=== PATIENT | female | born 1980 | race Caucasian/White ===

== ENCOUNTER → 2017-11-06 13:01 | Outpatient (CLI) | payer BC, SELFPAY ==
[2017-11-13 10:36] LABS: HPV Reflexed? NOT INDICATED
== END ==
PROVIDERS: Visit Provider Obstetrics & Gynecology
DX: Z12.4 Encounter for screening for malignant neoplasm of cervix (principal)
CPT/HCPCS: 88175; G0145

== ENCOUNTER 2021-08-05 10:00 | Outpatient (CLI) | payer OTHER, SELFPAY ==
--- NOTE | 2021-08-05 10:04 | BI_ITS ---
MAMMOGRAPHY - BILATERAL SCREENING 3-D TOMOSYNTHESIS REASON FOR EXAM: Female, 40 years old. SCREENING PERTINENT HISTORY: No significant family history. TECHNIQUE: 2-D mammograms and 3-D Tomosynthesis of the breast (s) were performed. CAD was performed. COMPARISON: None. FINDINGS: The breast composition is heterogeneously dense that can obscure small breast masses. Scattered benign calcifications are seen. No dense spiculated masses or suspicious microcalcifications are identified. No architectural distortion is identified. There is no skin thickening or retraction. There has been no significant change since the prior study. BI/SCRN MAMM (CAD)W/KATH BILAT IMPRESSION: No mammographic signs of malignancy. Routine yearly mammograms recommended. ASSESSMENT CATEGORY: BIRADS Category 1: Negative. A letter regarding these results will be sent to the patient by the facility within 30 days. FOLLOW UP RECOMMENDATION: Yearly follow up mammogram recommended. (A) Approximately 10% of breast cancers are not detected by mammography. A normal mammogram should not delay biopsy of a clinically suspicious abnormality. Electronically Signed: Geoff Klein MD at 15:11 EDT ,
== END 2021-08-05 23:59 | disposition home or self-care (01) ==
LOC: OPBI 10:01
PROVIDERS: Visit Provider Obstetrics & Gynecology
DX: Z12.31 Encounter for screening mammogram for malignant neoplasm of breast (principal)
CPT/HCPCS: 77063; 77067

== ENCOUNTER 2022-04-23 09:28 | Emergency (ER) | payer OTHER, SELFPAY ==
[2022-04-23 09:29] VITALS: BP 147/100; PULSE 120; RESP 18; TEMP 36.2; O2SAT 96; BMI 36.8
--- NOTE | 2022-04-23 10:11 | ED.VIS.GI ---
HPI HPI - GI History of Present Illness Chief Complaint: Other, Pain/Inj Detail of Chief Complaint: Hemorrhoidal pain Informant: patient Abdominal Pain/Flank Pain Onset: Days Context: Gradual Onset Timing: Continuous Quality: Burning Current Severity: Mild Maximum Severity: Mild Worsened by: Nothing Relieved by: Nothing Nausea/Vomiting/Emesis GI Symptom: Negative for Nausea or Vomiting Diarrhea/Melena/Hematochezia GI Symptom: Positive for Diarrhea; Negative for Melena or Hematochezia Associated Symptoms Associated Symptoms: Negative for Dysuria or Frequency Narrative Narrative: 41-year-old female has had hemorrhoids for last 3 days. Small amount of bleeding. Increasing pain. Previously had them when she was . Prior similar symptoms: Yes Recent Illness/Hospitalization: No PFSH PFSH Medical History no medical history no medical history Home Medications hydrocodone-acetaminophen 5-325mg 5mg-325mg 1 - 2 tab PO Q4H PRN PRN Mod-Severe (Pain Scale 6-10) ##20 01/15/15 [Rx Last Taken Unknown] ondansetron 4 mg disintegrating tablet 4 mg PO Q8H PRN PRN Nausea #10 tabs 05/06/17 [Rx Last Taken Unknown] hydrocodone-acetaminophen 5-325mg 5mg-325mg 1 tab PO Q4H PRN pain 5 days #20 tabs 04/23/22 [Rx Last Taken Unknown] Allergy/AdvReac Type Severity Reaction Status Date / Time chlorhexidine Allergy Rash Verified 05/06/17 14:09 ciprofloxacin [From Cipro] Allergy Hives Verified 05/06/17 14:09 latex Allergy Rash Verified 05/06/17 14:09 Social History Smoking Status: Former smoker ROS ROS ED ROS Narrative Denies. Review of Systems ROS Unobtainable: Denies due to encephalopathy Constitutional Constitutional ED: Denies chills or fever(s) ENT ENT ED: Denies ear pain Cardiovascular Cardiovascular: Denies chest pain Respiratory/Chest Respiratory/Chest: Denies cough Gastrointestinal Gastrointestinal: Reports diarrhea; Denies abdominal pain, constipation, melena, nausea or vomiting Genitourinary Genitourinary ED: Denies dysuria or hematuria Musculoskeletal Musculoskeletal: Denies arthralgias Integumentary Denies abscess Neurologic Neurologic: Denies headache(s) or paresthesias Psychiatric Psychiatric: Denies anxiety Endocrine Endocrinology: Denies polydipsia Hematologic/Lymphatic Hematologic/Lymphatic: Denies easy bleeding Allergic/Immunologic Allergic/Immunologic ED: Denies mouth swelling, tongue swelling or urticaria EXAM Physical Exam Narrative Exam Narrative: Well-appearing 41-year-old female. Vital signs stable afebrile. H EENT exam unremarkable. Moist incontinence. Lungs clear to auscultation bilaterally. Heart tachycardic rate about 110 due to pain. Abdomen soft nontender normal bowel sounds no peritoneal signs. Moving all 4 extremities. Nontender no edema. Anal exam she has a cluster of 3 moderate sized hemorrhoids. Tender to palpation. Currently no active bleeding or clots. Const Vital Signs: 04/23/22 09:29 Temperature 97.2 F L Temperature Source Temporal Pulse Rate 120 H Respiratory Rate 18 Blood Pressure 147/100 H Blood Pressure Mean 115 Pulse Ox 96 Oxygen Delivery Method Room Air Positive well nourished, well developed and obese; Negative for cachectic, contractures or unkempt General Appearance ED: well developed and NAD; Negative for unkempt, cachectic, contractures or pallor Nutritional Appearance: obese; Negative for cachectic HEENT Reports moist mucous membranes normocephalic and atraumatic; Negative for trauma or tenderness Eyes PERRL and EOMs intact bilaterally General Eye ED: Negative for pale conjunctiva or scleral icterus Neck no lymphadenopathy, supple and no JVD General: Negative for tenderness Carotids: Negative for other Lymph Lymphatic: Negative for other Resp normal respiratory effort and clear to auscultation bilaterally Effort and Inspection: Negative for respiratory distress Auscultation: Negative for rales, rhonchi or wheezes Cardio regular rhythm, S1 normal heart sound, S2 normal heart sound and no murmurs; Negative for regular rate Rate: tachycardic GI non-tender, non-distended and no masses GI Narrative: Anal exam shows 3 moderate-sized hemorrhoids tender to palpation. No active bleeding or clots. Thrombosed. Inspection: Negative for abdominal distention Auscultation: normoactive bowel sounds Palpation: soft; Negative for tender or guarding Back/Spine no CVA tenderness General Back: Negative for CVA tenderness Cervical Spine: Negative for cervical spine tenderness Thoracic Spine / Upper Back: Negative for thoracic spinal tenderness Lumbar Spine / Lower Back: Negative for lumbar spinal tenderness Extremity full ROM General Extremety ED: Negative for edema or tenderness General Extremity: Negative for edema Neuro moves all extremities Sensorium / Orientation: alert, oriented to person, oriented to place and oriented to time; Negative for orientation impaired, confused, lethargic or stuporous Motor Exam: strength 5/5 throughout Psych mental status grossly normal and thought process normal Appearance: Negative for unkempt Attitude: No agitated Mood & Affect: Negative for depressed, anxious or tearful Skin no wounds General Skin Exam: Negative for jaundice or pallor Lesions: no lesions Rashes: no rashes Trauma: Negative for abrasion Nails: Negative for discolored MDM MDM MDM Narrative Medical decision making narrative: 41-year-old with hemorrhoids. She will use hemorrhoidal cream. Warm soaks. Be referred to general surgery for further evaluation and possible hemorrhoidectomy. [place] for pain. Discharge Plan Triage Chief Complaint: Other, Pain/Inj ED Provider: [place] Sue Dx/Rx/DC Orders Clinical Impression: External hemorrhoid Instructions: ED Hemorrhoids Prescriptions: New hydrocodone-acetaminophen 5-325 mg tablet 1 tab PO Q4H PRN (Reason: pain) 5 Days Qty: 20 0RF No Action hydrocodone-acetaminophen 1 TABLET tablet 1 - 2 tab PO Q4H PRN PRN (Reason: Mod-Severe (Pain Scale 6-10)) Qty: 20 0RF ondansetron 4 MG tablet 4 mg PO Q8H PRN PRN (Reason: Nausea) Qty: 10 0RF Primary Care Provider: Care Physician,No Primary Referrals: Augusta Mckay MD [Med Staff - Active Staff] - As soon as possible Care Physician,No Primary [Primary Care Provider] - Activity Restrictions/Additional Instructions: Call and follow-up with a general surgeon today. Call to get an appointment. Warm soaks in the tub. Motrin for pain along with the [place]. Hemorrhoidal cream 3-4 times a day. Preparation H is fine. Disposition Disposition: Home, Self Care
[2022-04-23] MEDS: HYDROcodone Bitartrate/Apap 5/325 Tablet PO (10:21)
== END 2022-04-23 10:35 | disposition home or self-care (01) ==
LOC: ED 10:21
PROVIDERS: Emergency Provider Emergency Medicine; Visit Provider Emergency Medicine
DX: O22.40 Hemorrhoids in pregnancy, unspecified trimester (principal); Z87.891 Personal history of nicotine dependence; R10.9 Unspecified abdominal pain; R19.7 Diarrhea, unspecified; O99.210 Obesity complicating pregnancy, unspecified trimester
CPT/HCPCS: 99282

== ENCOUNTER 2022-04-25 08:14 | Day surgery (SDC) | payer OTHER, SELFPAY ==
[2022-04-25] VITALS (9 sets, daily range): BP systolic 138–164; BP diastolic 82–121; PULSE 88–123; RESP 16–18; TEMP 35.6–36.9; O2SAT 92–98; BMI 36.8
[2022-04-25] MEDS: Lactated Ringers 1,000 ML 15 ML IV ×2 (08:58→11:50)
--- NOTE | 2022-04-25 10:11 | HP.PCM_ITS ---
History and Physical Date of Admission: 04/25/22 Intake Vital Signs ? 04/23/2308:29 04/24/2309:21 Height 5 ft 4 in 5 ft 4 in Weight: 215 lb 215 lb BMI 36.8 36.8 BP 147/100 H 142/107 H Blood Pressure Location ? Rt brachial Position ? Standing RespirationB 18 18 Pulse 120 H 135 H Pulse Source ? Monitor Temp 97.2 F L ? Temp Source Temporal ? Pulse Oximetry (%) 96 97 Oxygen Delivery Method ? 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 Is patient in pain?: Yes Pain scale (1-10): 10 Allergies chlorhexidine Allergy (Verified 04/24/22 11:13) Rashciprofloxacin [From Cipro] Allergy (Verified 04/24/22 11:13) Hiveslatex Allergy (Verified 04/24/22 11:13) Rash Medications hydrocodone-acetaminophen 5-325mg 5mg-325mg 1 tab PO Q4H PRN pain 5 days #20 tabs 04/23/22 [Rx Confirmed 04/24/22] albuterol sulfate 90 mcg/actuation aerosol inhaler 2 puff inhalation Q6H PRN ASTHMA 04/24/22 [History Confirmed 04/24/22] amoxicillin 500 mg-potassium clavulanate 125 mg tablet (Augmentin) 1 tab PO BID #3 tabs 04/24/22 [Rx Confirmed 04/24/22] oxycodone-acetaminophen 5 mg-325 mg tablet (Percocet) 1 - 2 tab PO Q4H PRN pain 7 days #60 tabs 04/24/22 [Rx Confirmed 04/24/22] PFSH Medical History?(Updated 04/24/22 @ 13:25 by Tasha HAMM PA-C) Alcohol use Asthma External hemorrhoid History of irregular heartbeat Injury of head and neck Migraine headache Non-smoker Restless legs Surgical History?(Updated 04/24/22 @ 10:19 by Rosina Kent) History of appendectomy History of History of loop electrical excision procedure (LEEP) History of tubal ligation Family History?(Updated 04/24/22 @ 10:20 by Rosina Kent) Grandfather Colon cancerFather Cancer ?? ? Pancreas and Liver Cancer DiabetesMother Cancer ?? ? Leukemia Diabetes Social History?(Updated 04/24/22 @ 10:21 by Rosina Kent) Smoking Status:? Former smoker alcohol intake:? current alcohol intake frequency: a few times a month substance use type:? does not use HPI HPI Surgical H&P: Yes HPI: Patient is a 41 y/o F I am seeing for rectal pain, possible thrombosed hemorrhoid. Patient states she has had this pain for 3 days. She notes the discomfort has been progressive over the last 3 days. Patient states she has never had pain like this previously. She is unable to sit or sleep. She has had a lack of appetite due to the pain. She went to the ED yesterday due to the pain. Patient was provided narcotic pain medication and recommended to place hemorrhoid cream on top of the hemorrhoids. Patient states she attempted to perform a sitz bath with Epsom salts which caused burning. She is frustrated with the pain and is willing to do whatever it takes to feel better. Patient does not like to take narcotic pain medication and only took 2 tablets. Patient notes she has been scared to have a bowel movement. ROS General General: No weight change, appetite, fatigue, colon cancer, breast cancer or weakness HEENT HEENT: No difficulty swallowing, eye injury, eye surgery, swollen glands or hoarseness Endo Endocrine: No thyroid disease, diabetes mellitus, thyroid cancer, Hair loss, heat intolerance or cold intolerance Skin Skin: No rash or changing moles Breast Breast: No left breast lump, right breast lump, nipple discharge, breast pain, abnormal mammogram, abnormal US or breast enlargement Musc Musculoskeletal: No back problems, arthritis, rheumatoid arthritis, gout or joint pain Cardio Cardiovascular: No murmur, pacemaker, heart disease, atrial fibrillation, high blood pressure, heart attack, heart stent, palpitations, shortness of breat with exertion or chest pain Psych Psychiatric: No depression, anxiety or hearing voices Resp Respiratory: No shortness of breath, No sleep apnea, No cough, No COPD, Yes asthma, No emphysema and No wheezing Gastro Gastrointestinal: No abdominal pain, No nausea or vomiting, No diarrhea, No constipation, No blood in stool, No acid reflux, Yes hemorrhoids, No ulcers, No gallbladder problem and No black,tarry stools Gray Hematologic: No blood thinners, No blood disorders, No bleeding, No anemia and No blood clots Neuro Neurologic: No system reviewed and no additional complaints, except as documented, No as per HPI, No abnormal gait, No abnormal hearing, No abnormal movements, No abnormal speech, No behavioral changes, No burning sensations, No confusion, No convulsions, No disequilibrium, No dizziness, No localized weakness, No frequent falls, No headache(s), No lack of coordination, No loss of vision, No memory loss, No numbness, No other visual disturbances, No radicular pain, No restless legs, No sensory deficit, No syncope, No tingling, No tremor(s), No weakness and No other Exam Const General: cooperative and in distress HENMT Head: normal to inspection Eyes General: appearance normal, both eyes and all related structures Neck Neck: normal visual inspection Neck mass: No Resp Effort & Inspection: normal respiratory effort Auscultation: clear to auscultation bilaterally Cardio Rate: tachycardic Rhythm: regular rhythm GI Inspection: normal to inspection Palpation: soft Other: Rectum- significant cluster of thrombosed hemorrhoids with evidence of multiple areas of necrotic tissue on the right lateral side of the anus. Extremely tender and painful to even spread to evaluate the area. Musc Cervical Spine: normal cervical lordosis Skin Rashes: no rashes Neuro General: no focal motor deficits Extrem General: normal to inspection Psych Appearance: disheveled Mood: anxious mood Affect: anxious affect and tearful Attitude: cooperative Assessment and Plan Assessment and Plan (1) Thrombosed external hemorrhoid: ?Status:?Acute ?Plan: I have involved and discussed this patient with Dr. Maravilla. Dr. Maravilla has also evaluated this patient. Dr. Maravilla will plan to perform an exam under anesthesia with an extensive hemorrhoidectomy. Procedure details, risks and benefits have been explained to the patient and the patient's sister. Patient will be prescribed Percocet and Augmentin per Dr. Maravilla. Post- operative instructions were discussed and provided to the patient. Patient and her sister have had the opportunity to ask and have questions answered. Patient has been urgently scheduled for tomorrow. Patient verbally understands and agrees with the plan. We will proceed as planned.
[2022-04-25] MEDS: Cefotetan 2 GM in 0.9% NS 100 ML IV (10:26)
--- NOTE | 2022-04-25 10:30 | HEM_PTH ---
PATIENT: SYDNEY MOSLEY LOC: [facility] U#:[id number] AGE/SX: 41/F ROOM: RE04/25/[address]: Dr. Olman Maravilla MD : 1980 BED: DIS: 04/25/2022 SPEC #: [id number] RECD: 04/25/22 13:52 STATUS: CAMPOS RERoro #: [id number] PRAMOD: 04/25/22 10:[address]: Olman Maravilla DEPT: SURGICAL PATHOLOGY RECD BY: Venus Watson ENTERED: 04/28/22 10:35 SP TYPE: HEMORRHOID OTHR DR: No Primary Care Phys Tissues: HEMORRHOIDS Procedures: Surgery Specimen Level III HEADER OPERATION: Exam under anesthesia, hemorrhoidectomy PRE-OP DIAGNOSIS: Thrombosed hemorrhoids with necrosis TISSUE SUBMITTED: Hemorrhoids MICROSCOPIC DIAGNOSIS Hemorrhoids, hemorrhoidectomy: Submucosal vascular ectasia and thrombosis consistent with hemorrhoids. Focal mucosal ulceration and associated acute and chronic inflammation and granulation. AM:lilia 04/29/2022 MICROSCOPIC DESCRIPTION Slides are reviewed. GROSS DESCRIPTION Received in fixative is one container labeled with the patient's name and designated hemorrhoids. The specimen consists of two pieces of congested mucosal tissue measuring in aggregate 3.5 x 2.5 x 1.5 cm. Sections reveal congested and hemorrhagic cut surfaces. Dermatology Teacher sections are submitted in two cassettes with each cassette containing sections from one fragment. / SJ:lilia 04/28/2022 TC:2 CPT: 19855
[2022-04-25] MEDS: Dibucaine 30 GM Tube 1 APPLIC (10:42)
[2022-04-25] MEDS: Lubricating Jelly 60 GM Tube 30 GM (10:43)
[2022-04-25] MEDS: BUPIVACAINE LIPOSOME/PF 20 ML VIAL OPERA.SITE (10:55)
--- NOTE | 2022-04-25 11:40 | SUR.PHASEI ---
REPEATEDLY C/O URGE TO VOID, OCCASIONALLY STATES URGE TO DEFECATE. SAT ON BEDPAN FOR OVER 10 MINUTES, SCANT URINE OUT, ASKING TO GET OOB TO BATHROOM, NEEDS REDIRECTED, REEDUCATED. MEDICATED w/ ATIVAN PER DR MURRELL TO HELP RELAX SINCE HAVING DIFFICULTY GETTING ACCURATE BP, RESTLESS, AGITATED.
--- NOTE | 2022-04-25 12:46 | PCM.OPRPT ---
Report of Operation Date of Procedure: 04/25/22 Pre-Operative Diagnosis: Necrotic thrombosed hemorrhoids Post-Operative Diagnosis: Same Surgery/Procedure Performed:: Exam under anesthesia with internal and external hemorrhoidectomy x2 columns Specimen's removed: Hemorrhoid x2 Description of Procedure: Patient brought back to the operating room and general anesthesia was induced. The patient was placed in a prone jackknife position. The buttocks were taped open and the perineum was prepped and draped in usual sterile fashion. The patient had large hemorrhoids which were thrombosed on the right side, both the anterior and posterior column with gangrenous overlying skin and necrosis. Using harmonic scalpel the hemorrhoids were removed from the underlying tissue. The sphincter was palpated and was intact. The mucosa was reapproximated over the area using interrupted 3-0 Vicryl sutures and a running 3-0 chromic suture. The area was irrigated and suctioned and there appeared to be good hemostasis. Next Exparel was injected in a circumferential fashion around the area. A Gelfoam was then rolled and coated with lidocaine gel and placed into the rectal area and left. Next dressing was applied the patient was turned over and extubated and brought to PACU in stable condition. Admit VTE Documentation VTE Mechan Device Prophylaxis: SCD's
--- NOTE | 2022-04-25 12:53 | DCINST_ITS ---
Discharge Instructions Procedure Rectal Surgery Diet Discharge Diet: Light diet - advance as tolerated (Pain medication may cause nausea. You should typically eat light foods as you take your pain medication.) Activity Discharge Activity: Return to Normal Activity and May Not Drive (while you are taking narcotic pain medications. Do not drive, work with heavy equipment or sign legal documents for 24 hours after your surgery.) May resume sexual activity in: No Restrictions Additional Activity Instructions:: Be aware that pain medications may cause nausea. You should typically eat light foods as you take your pain medications. Pain medications may also cause constipation, if you have difficulty with this please discuss with your doctor. Dressing / Incision Call your doctor if your incision/area has: Continuous Slow Oozing, Sudden Increased Bleeding, Increased Pain/ Swelling, Increased Redness, Foul Smelling Discharge and Swelling at the incision site Call your doctor if you observe: Fever of 101 or Higher, Inability to urinate and Uncontrolled pain Change Dressing in: as needed Additional Dressing/Incision Instructions:: If a local anesthetic plug was placed in the anal area, try not to expel for [address] dibucaine ointment on the perianal area as needed. Sitz baths twice daily and after bowel movements. Follow Up Care Please Follow Up With: Olman Maravilla MD When: Please call to schedule 2 week follow up appointment. [phone] Test Results: Test results from this visit will be discussed in further detail at your follow- up appointment, if applicable. Discharge Plan Admission Attending Provider: Olman Maravilla Primary Care Provider: Care PhysicianSarah Primary Discharge Orders/Prescriptions Prescriptions: New docusate sodium 100 mg tablet 100 mg PO BID Qty: 20 0RF Continued oxycodone-acetaminophen [Percocet] 5-325 mg tablet 1 - 2 tab PO Q4H PRN (Reason: pain) 7 Days Qty: 60 0RF amoxicillin-pot clavulanate [Augmentin] 500-125 mg tablet 1 tab PO BID Qty: 3 0RF albuterol sulfate 90 mcg/actuation Hfa Aerosol Inhaler 2 puff INHALATION Q6H PRN (Reason: ASTHMA) Discontinued hydrocodone-acetaminophen 5-325 mg tablet 1 tab PO Q4H PRN (Reason: pain) 5 Days Qty: 20 0RF Referrals / Follow Up: Care Physician,No Primary [Primary Care Provider] - Disposition Disposition (needs filled in before D/C Order can be placed): Home, Self Care
[2022-04-25] MEDS: Acetaminophen 325 MG Tablet PO (13:47)
[2022-04-25] MEDS: oxyCODONE 5 MG Tablet PO (13:47)
== END 2022-04-25 14:38 | disposition home or self-care (01) ==
LOC: SDC 08:15 → AC 08:20
PROVIDERS: Referring Provider Surgery; Visit Provider Surgery
PROC: (CPT 46260; principal; 2022-04-25 10:15)
DX: K64.5 Perianal venous thrombosis (principal); J45.909 Unspecified asthma, uncomplicated; Z79.899 Other long term (current) drug therapy; Z87.891 Personal history of nicotine dependence; Z80.0 Family history of malignant neoplasm of digestive organs
CPT/HCPCS: 46260; 00902; 88304; J7120; J2405

== ENCOUNTER → 2022-07-21 | Outpatient (CLI) | payer OTHER, SELFPAY ==
[2022-07-21 18:08] LABS: Hematocrit 43.3 % (37-47); Mean Corp Hgb Conc 32.3 g/dL (32-36); Mean Corpuscular Hgb 27.8 pg (27.0-32.0); Mean Corpuscular Volume 85.9 fL (81-99); Mean Platelet Vol. 11.1 fl (6.2-12.0); Platelet Count 301 K/mm3 (150-450); RBC Distribution Width CV 12.9 % (11.6-14.6); RBC Distribution Width SD 40.3 fl (35.1-43.9); Red Blood Count 5.04 M/mm3 (4.2-5.4); White Blood Count 9.9 K/mm3 (4.4-11.0)
[2022-07-21 18:28] LABS: Anion Gap 2 (5-15); BUN 14 mg/dL (7-18); BUN/Creat Ratio 23.5 RATIO (10-20); Chloride 107 mmol/L (98-107); EST Glomerular Filtration Rate 118 mL/min (>60); Est Glom Filt Rate - Afr Amer 142 mL/min (>60); Glucose 90 mg/dL (74-106); Magnesium 2.4 mg/dL (1.6-2.6); Potassium 4.1 mmol/L (3.5-5.1); Sodium Level 138 mmol/L (136-145); Thyroid Stim Hormone (TSH) 1.28 uIU/mL (0.358-3.74)
[2022-07-21 18:47] LABS: Erythrocyte Sedimentation Rate 19 mm/hr (0-30)
== END | disposition home or self-care (01) ==
LOC: MTLAB 15:12
PROVIDERS: Referring Provider Internal Medicine Gastroenterology; Visit Provider Internal Medicine Gastroenterology
DX: R14.0 Abdominal distension (gaseous) (principal); K59.00 Constipation, unspecified
CPT/HCPCS: 36415; 80048; 83735; 84436; 84443; 85027; 85652

== ENCOUNTER → 2022-07-28 | Outpatient (CLI) | payer OTHER, SELFPAY ==
--- NOTE | 2022-07-28 08:20 | RAD_ITS ---
INDICATION: CHRONIC CONSTIPATION EXAMINATION/TECHNIQUE: X-RAY - UNKNOWN XR Abdomen 2 views COMPARISON: None FINDINGS: BOWEL GAS PATTERN: Non-obstructive. No bowel or stomach distention. Inspissated stool throughout the colon and rectum. FREE AIR: None visualized. ORGANOMEGALY: Not seen. CALCIFICATIONS: No suspicious urinary calcification. LOWER CHEST: Not included in the [id number]. BONES AND SOFT TISSUES: No acute abnormal finding. RAD/Colonic Trans GI/w Mul Image IMPRESSION: Inspissated stool throughout the colon and rectum compatible with clinical diagnosis of constipation. Electronically Signed: Amauri Romero MD at 18:30 EDT ,
== END | disposition home or self-care (01) ==
LOC: RAD 07:40
PROVIDERS: Referring Provider Internal Medicine Gastroenterology; Visit Provider Internal Medicine Gastroenterology
DX: K59.09 Other constipation (principal)
CPT/HCPCS: 74248

== ENCOUNTER → 2022-08-25 | Outpatient (CLI) | payer OTHER, SELFPAY ==
--- NOTE | 2022-08-25 08:16 | RAD_ITS ---
STUDY: X-RAY - ABDOMEN/PELVIS REASON FOR EXAM: Female, 41 years old. CHRONIC CONSTIPATION, COLONIC TRANSIT STUDY TECHNIQUE: Single AP view of the abdomen / pelvis. COMPARISON: None. FINDINGS: A garment tag stringer supine view the abdomen demonstrates no bowel dilatation to spelled correction. The patient is status post bilateral tubal ligation. On day 3 after the administration of 24 Sitzmarks markers, all 24 of the markers remain primarily in the left side of the abdomen likely in the descending and sigmoid colon. . On day 5, 7 of the markers remain in the pelvis likely in the sigmoid colon. Repeat study after the administration of the bulking agent for 2 weeks would be useful. RAD/Colonic Trans GI/w Mul Image IMPRESSION: Possible functional outlet delay and repeat study after the administration of a bulky agent for 2 weeks would be useful. Electronically Signed: Geoff Klein MD at 19:47 EDT ,
== END | disposition home or self-care (01) ==
LOC: RAD 08:02
PROVIDERS: Referring Provider Internal Medicine Gastroenterology; Visit Provider Internal Medicine Gastroenterology
DX: K59.09 Other constipation (principal)
CPT/HCPCS: 74248

== ENCOUNTER → 2022-11-17 | Outpatient (CLI) | payer OTHER, SELFPAY ==
[2022-11-17 17:49] LABS: Luteinizing Hormone 3.3 mIU/mL; T4 Free Direct 0.89 ng/dL (0.76-1.46); Thyroid Stim Hormone (TSH) 0.98 uIU/mL (0.358-3.74)
[2022-11-17 17:50] LABS: Hemoglobin A1c 5.7 % (3.8-5.6)
== END | disposition home or self-care (01) ==
LOC: WOBLAB 16:54
PROVIDERS: Visit Provider Student in an Organized Health Care Education/Training Program
DX: Z01.419 Encounter for gynecological examination (general) (routine) without abnormal findings (principal)
CPT/HCPCS: 36415; 83001; 83002; 83036; 84439; 84443

== ENCOUNTER → 2023-07-15 | Outpatient (CLI) | payer OTHER, SELFPAY ==
[2023-07-15 10:43] LABS: Absolute Lymphocyte Count 1.75 X10^3/uL (0.83-4.51); Absolute Neutrophil Count 5.1 X10^3/uL (2.0-7.7); Basophil# 0.04 X10^3/uL; Basophil% 0.5 % (0-1); Eosinophil# 0.16 X10^3/uL; Eosinophils% 2.1 % (0-5); Hematocrit 42.8 % (37-47); Hemoglobin 13.9 g/dL (12.0-15.0); Lymphocyte # 1.75 X10^3/ul (0.83-4.51); Lymphocyte % 22.7 % (19-41); Mean Corp Hgb Conc 32.5 g/dL (32-36); Mean Corpuscular Volume 86.1 fL (81-99); Mean Platelet Vol. 11.4 fl (6.2-12.0); Monocyte# 0.68 X10^3/uL; Monocyte% 8.8 % (0-10); NRBC Flagged by Analyzer 0 % (0-5); Neutrophil # 5.06 X10^3/uL (2.7-7.7); Neutrophil % 65.6 % (47-70); Platelet Count 283 K/mm3 (150-450); RBC Distribution Width CV 12.7 % (11.6-14.6); RBC Distribution Width SD 39.8 fl (35.1-43.9); Red Blood Count 4.97 M/mm3 (4.2-5.4); White Blood Count 7.7 K/mm3 (4.4-11.0)
[2023-07-15 10:57] LABS: Vitamin D,25 Hydroxy 21.2 ng/mL
[2023-07-15 11:03] LABS: AST(SGOT) 17 U/L (15-37); Alanine Aminotransfer ALT/SGPT 38 U/L (13-56); Albumin, Serum 3.8 g/dL (3.2-5.0); Alkaline Phosphatase 84 U/L (45-117); Anion Gap 5 (5-15); BUN 12 mg/dL (7-18); BUN/Creat Ratio 18.8 RATIO (10-20); Calcium,Total 9.1 mg/dL (8.5-10.1); Chloride 106 mmol/L (98-107); Cholesterol 185 mg/dL (200); Creatinine, Serum 0.64 mg/dL (0.55-1.02); EST Glomerular Filtration Rate 108 mL/min (>60); Est Glom Filt Rate - Afr Amer 131 mL/min (>60); Globulin 3.9 g/dL (2.2-4.2); Glucose 104 mg/dL (74-106); High Density Lipoprotein 50 mg/dL; Protein, Total 7.7 g/dL (6.4-8.2); Sodium Level 137 mmol/L (136-145); Thyroid Stim Hormone (TSH) 1.03 uIU/mL (0.358-3.74); Triglycerides 75 mg/dL; Very Low Density Lipoprotein 15 mg/dL (5-40)
== END | disposition home or self-care (01) ==
PROVIDERS: PCP Family Medicine; Referring Provider Family Medicine; Visit Provider Family Medicine
DX: Z13.1 Encounter for screening for diabetes mellitus (principal); Z13.21 Encounter for screening for nutritional disorder; Z13.220 Encounter for screening for lipoid disorders; F41.9 Anxiety disorder, unspecified
CPT/HCPCS: 36415; 80053; 80061; 82306; 84443; 85025